=== PATIENT | female | born 1970 | race African-American/Black ===

== ENCOUNTER 2016-05-30 11:56 | Emergency (ER) | payer OTHER ==
[~2016-05-30] VITALS: Ht 170.2 cm; Wt 99.8 kg
[~2016-05-30 11:56] MED LIST: CALCIUM + D 6001 TAB PO; FLEXERIL10 MG PO; LISINOPRIL10 MG PO; MOBIC15 MG PO; MULTIVITAMIN1 TAB PO; TRAMADOL50 MG PO
--- NOTE | 2016-05-30 12:22 | ED UPPER/LOWER EXTREMITY COMPL ---
History of Present Illness General Chief Complaint: Shoulder Injury Stated Complaint: RIGHT SHOULDER AND ARM PAIN Source: patient Exam Limitations: no limitations Vital Signs & Intake/Output Vital Signs & Intake/Output Vital Signs Date Time Temp Pulse Resp B/P Pulse O2 O2 Flow FiO2 Ox Delivery Rate 05/30 1205 97.4 89 16 136/99 98 Room Air Allergies Coded Allergies: NO KNOWN ALLERGIES (05/30/16) Reconcile Medications Cyclobenzaprine HCl 10 MG TABLET 1 TAB PO QPM PRN SPASM DO NOT DRIVE WITH THIS MEDICATION Lisinopril 10 MG TAB 1 TAB PO DAILY BP (Reported) Meloxicam (Mobic) 15 MG TAB 1 TAB PO DAILY PRN PAIN Tramadol HCl 50 MG TABLET 1 TAB PO BIDP PRN PAIN DO NOT DRIVE WITH THIS MEDICATION Triage Note: 46 Y/O FEMALE C/O R ARM PAIN. STATES PAIN STARTED IN THE WRIST IN 2013. WAS EVAL'D IN ED AND GIVEN A BRACE TO WEAR, WHICH HAS BEEN HELPING. STATES NOW THE PAIN HAS TRAVELED UP ARM INTO BICEP/SHOULDER. USED HEAT LAST NIGHT WITH GOOD RELIEF. NO DEFORMITIES NOTED. PT STATES SHE THINKS IT IS HER ROTATOR CUFF. DENIES RECENT RE INJURY OR TRAUMA Triage Nurses Notes Reviewed? yes Onset: Abrupt Duration: day(s): (3) Timing: recent history Severity: moderate Pain/Injury Location: Right: Shoulder. Modifying Factors: Improves With: movement. : No Patient currently breastfeeds: No HPI: This is a 46 year old female who presents to the ER with right shoulder pain that started gradulally over the past 4 days. Pain is worse with movement, currently 8/10. She did not take any thing for pain over the counter. She used a heating pad without relief. History of previous right wrist pain many years ago which was diagnosed as tendinitis. Past History Travel History Traveled to [place] past 21 day No Medical History Any Pertinent Medical History? 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 No Review of Systems Review of Systems Constitutional: Denies: chills, fever. EENTM: Reports: no symptoms. Respiratory: Reports: no symptoms. Cardiovascular: Denies: chest pain, palpitations. Gastrointestinal/Abdominal: Denies: abdominal pain. Genitourinary: Reports: no symptoms. Musculoskeletal: Reports: joint pain, muscle pain. Skin: Reports: no symptoms. Neurological/Psychological: Reports: no symptoms. Hematologic/Endocrine: Denies: bruising, bleeding. Immunological: Reports: no symptoms. All Other Systems: Reviewed and Negative Physical Exam Physical Exam General Appearance: well developed/nourished, mild distress Head: atraumatic Eyes: Bilateral: PERRL, EOMI. Ears, Nose, Throat: normal pharynx, normal ENT inspection, hearing grossly normal Neck: normal inspection, supple Cardiovascular/Respiratory: regular rate/rhythm Peripheral Pulses: 2+ radial (R), 2+ radial (L) Back: normal inspection Shoulder Left: normal range of motion, normal inspection Elbow Left: normal range of motion, normal inspection Elbow Right: normal range of motion, normal inspection Hand Left: normal inspection, normal range of motion Hand Right: normal inspection, normal range of motion Skin: intact, normal color, warm/dry Lymphatic: no anterior cervical dwight Progress Differential Diagnosis: ROTATOR CUFF TENDINIGITS, ADHESIVE CAPSULITIS, BURSITIS, AC SEPARATION Plan of Care: Orders Procedure Date/time Status XRY-SHOULDER COMPLETE-RIGHT 05/30 1238 Active Diagnostic Imaging: Viewed by Me: Radiology Read. Discussed w/RAD: Radiology Read. Radiology Impression: no fx/dislocation, PATIENT: ALIDA BARRETT PRESENT AGE: 46 PATIENT ACCOUNT NO: [id number] : 71 LOCATION: [facility] ORDERING PHYSICIAN: CHELSEA MARIO MD SERVICE DATE: 05/30/161238 EXAM TYPE: RAD - XRY-SHOULDER COMPLETE-RIGHT EXAMINATION: XR SHOULDER, RIGHT CLINICAL INFORMATION: Right shoulder pain for one week. Worse with movement. COMPARISON: None TECHNIQUE: AP external rotation, Grashey, scapular Y, and axillary views of the right shoulder. FINDINGS: There is a high riding humerus. The bones and soft tissues are normal. No fracture. Glenohumeral and acromioclavicular alignment is anatomic with normal joint space. No abnormal soft tissue calcifications. IMPRESSION: High riding humerus, which may be positional. However, this is also seen with rotator cuff tear. Consider MRI if the patient has persistent pain. DICTATED BY: TL EMERY MD DATE/TIME DICTATED:05/30/161318 DINING ROOM MANAGER:ORQUIDEA DATE/TIME TRANSCRIBED:1318 CONFIDENTIAL, DO NOT COPY WITHOUT APPROPRIATE AUTHORIZATION. < Electronically signed in Other Vendor System> SIGNED BY: TL EMERY MD 05/30/16 1324 Departure Departure Time of Disposition: 1321 Disposition: HOME OR SELF CARE Condition: Stable Clinical Impression Primary Impression: Rotator cuff sprain Referrals: AMITA DILLON,LUIS Latif (PCP/Family) MOHSEN DILLON,SINDY Latif Additional Instructions: Take medications as directed. Prescriptions have been sent to your pharmacy in [place]. Please follow-up with your primary care doctor and with the office services specialist listed. Return to the ER for any changing or worsening symptoms. Departure Forms: Customer Survey General Discharge Information Prescriptions: Current Visit Scripts Cyclobenzaprine HCl 1 TAB PO QPM PRN SPASM #[address] WITH THIS MEDICATION Tramadol HCl 1 TAB PO BIDP PRN PAIN #[address] WITH THIS MEDICATION
[2016-05-30] MEDS ORDERED: CYCLOBENZAPRINE10 M1 PO (13:23)
[2016-05-30] MEDS ORDERED: TRAMADOL HCL50 M1 PO (13:23)
--- NOTE | 2016-05-30 13:24 | RADIOLOGY REPORT ---
EXAMINATION: XR SHOULDER, RIGHT CLINICAL INFORMATION: Right shoulder pain for one week. Worse with movement. COMPARISON: None TECHNIQUE: AP external rotation, Grashey, scapular Y, and axillary views of the right shoulder. FINDINGS: There is a high riding humerus. The bones and soft tissues are normal. No fracture. Glenohumeral and acromioclavicular alignment is anatomic with normal joint space. No abnormal soft tissue calcifications. IMPRESSION: High riding humerus, which may be positional. However, this is also seen with rotator cuff tear. Consider MRI if the patient has persistent pain.
[2016-05-30 13:33] VITALS: BP 128/70
== END 2016-05-30 13:33 ==
LOC: ERH 11:56
DX: S43.421A Sprain of right rotator cuff capsule, initial encounter (principal); X58.XXXA Exposure to other specified factors, initial encounter; Y93.9 Activity, unspecified; Y92.9 Unspecified place or not applicable
CPT/HCPCS: 73030-RT; 96372; J1885

== ENCOUNTER 2017-09-02 07:54 | Emergency (ER) | payer OTHER ==
[~2017-09-02] VITALS: Ht 170.2 cm; Wt 102.1 kg
[~2017-09-02 07:54] MED LIST changes: +CYCLOBENZAPRINE10 M1 PO; -LISINOPRIL10 MG PO; +PRINIVIL10 M1 PO; +TRAMADOL HCL50 M1 PO
--- NOTE | 2017-09-02 08:32 | ED HEADACHE COMPLAINT ---
History of Present Illness General Chief Complaint: Headache Stated Complaint: PARKS Source: patient Exam Limitations: no limitations Vital Signs & Intake/Output Vital Signs & Intake/Output Vital Signs Date Time Temp Pulse Resp B/P B/P Pulse O2 O2 Flow FiO2 Mean Ox Delivery Rate 09/02 1032 98.4 84 20 134/82 98 Room Air 09/02 0759 97.6 73 18 138/95 98 Room Air Allergies Coded Allergies: NO KNOWN ALLERGIES (05/30/16) Reconcile Medications Atorvastatin Calcium 20 MG TABLET 1 TAB PO DAILY CHOLESTEROL (Reported) Fiorinal (Fiorinal 50-325-40 MG Capsule) 50 MG-325 MG-40 MG CAPSULE 1 TAB PO BID PRN headache Lisinopril (Prinivil) 10 MG TABLET 1 TAB PO DAILY HEART (Reported) Triage Note: 47F WITH RIGHT SIDED MIGRAINE SINCE THURSDAY WITH ASSOCIATED LIGHT SENSITIVITY. DENIES N/V/D. DENIES VISION CHANGES. TOOK IBUPROFEN WITH NO RELIEF. PAIN WORST IN THE MORNING Triage Nurses Notes Reviewed? yes Onset: Gradual Duration: day(s): Timing: recent history Quality/Severity: moderate Severity Numbers: 8 Head Injury Location: parietal HPI: 47-year-old female with hx of HTN presents to ED complaining of "migraine" x 4 days. Patient states that headache has been fluctuating for the past 4 days, worse with going to work, improved with rest. Patient describes headache as right parietal, aching, 8/10 currently. Patient states she has had migraines in the past however she has never seen a specialist. The patient states this headache feels similar to her previous migraines. The patient denies recent fall or head trauma, fevers, visual changes, numbness, tingling. (Clover Zaldivar) Past History Travel History Traveled to [place] past 21 day No Medical History Any Pertinent Medical History? 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 No (Clover Zaldivar) Review of Systems Review of Systems Constitutional: Reports: no symptoms. Eyes: Reports: no symptoms. Ears, Nose, Throat, Mouth: Reports: no symptoms. Respiratory: Reports: no symptoms. Cardiovascular: Reports: no symptoms. Gastrointestinal/Abdominal: Reports: no symptoms. Genitourinary: Reports: no symptoms. Musculoskeletal: Reports: no symptoms. Skin: Reports: no symptoms. Neurological/Psychological: Reports: see HPI. Hematologic/Endocrine: Reports: no symptoms. Endocrine: Reports: no symptoms. Immunologic/Allergic: Reports: no symptoms. All Other Systems: Reviewed and Negative (Clover Zaldivar) Physical Exam Physical Exam General Appearance: well developed/nourished, no apparent distress, alert, awake Head: atraumatic, normal appearance Eyes: Bilateral: normal appearance, PERRL, EOMI. Ears, Nose, Throat: normal pharynx, hearing grossly normal Neck: normal inspection, supple, full range of motion Respiratory: normal breath sounds, no respiratory distress, lungs clear Cardiovascular: regular rate/rhythm Extremities: normal inspection, normal range of motion Psychiatric: awake, alert, oriented x 3 Cranial Nerves: normal hearing, normal speech, PERRL, CN II-XII intact Coordination/Gait: normal finger to nose, normal gait Motor/Sensory: no motor/sensory deficits Skin: intact, normal color, warm/dry Core Measures Sepsis Present: No Sepsis Focused Exam Completed? No (Clover Zaldivar) Progress Differential Diagnosis: cluster PARKS, IC mass/tumor, intracranial Hem., migraine PARKS, musculoskeletal pain, sinusitis, tension PARKS Plan of Care: Patient reports improvement following Fioricet however is reporting persistent 6 /10 headache currently. I offered the patient IV medication however she does not she can tolerate an IV being placed. Patient prefers IM medications. Patient medicated with IM Toradol and Reglan. Patient reports headache has improved to 4/10 following IM pain medications. Given patient's persistent headache I offered patient's CT head imaging to rule out bleeding/mass however patient declines, she prefers to follow-up with a neurologist as an outpatient. Patient prefers home at this time, she declines further pain control here in the emergency department. I prescribed the patient Fioricet and gave her a neurology referral. The patient was given strict return precautions which she understands. Patient is ready to go home at this time, no acute distress, nontoxic appearing, ambulatory with steady gait, no focal neurologic deficit. The patient agrees with the plan of care. (Clover Zaldivar) Departure Departure Disposition: HOME OR SELF CARE Condition: Stable Clinical Impression Primary Impression: Headache Qualifiers: Headache type: unspecified Headache chronicity pattern: acute headache Intractability: not intractable Qualified Code: R51 - Headache Referrals: Emeli DILLON,Onesimo Latif (PCP/Family) Additional Instructions: Follow-up with the neurologist you're referred to today. The medications you received today include torodol, reglan, and fioricet. Return if you have any worsening symptoms or other concerns. Please note that there might be incidental findings in your evaluation that are unrelated to the current emergency department visit. Please notify your primary care doctor about this emergency department visit in order to obtain and review all of the testing performed so that these incidental findings can be monitored as needed. If you had an x-ray performed, please understand that some fractures may not be seen on the initial set of x-rays. If your symptoms persist you might need a repeat set of x-rays to check for such a fracture. If you had a laceration evaluated, please understand that foreign bodies such as glass or wood may not be visible to the naked eye or on plain x-rays. If the wound becomes red, swollen, increasingly more painful or if there is any drainage from the wound, please have it reevaluated by a physician for the possibility of a retained foreign body. If you're unable to follow up as outlined in the discharge instructions please return to the emergency department. Thank you for choosing the [facility] Emergency Department for your care. It was a pleasure to serve you today. Departure Forms: Customer Survey General Discharge Information Prescriptions: Current Visit Scripts Fiorinal (Fiorinal 50-325-40 MG Capsule) 1 TAB PO BID PRN headache #10 TAB (Clover Zaldivar) PA/METAL TEMPLATE MAKER Co-Sign Statement Statement: ED Attending supervision documentation- [] I saw and evaluated the patient. I have also reviewed all the pertinent lab results and diagnostic results. I agree with the findings and the plan of care as documented in the PA's/METAL TEMPLATE MAKER's documentation. [x] I have reviewed the ED Record and agree with the PA's/METAL TEMPLATE MAKER's documentation. [] Additions or exceptions (if any) to the PAs/METAL TEMPLATE MAKER's note and plan are summarized below: [] (Manjeet Mcclelland DO)
[2017-09-02] MEDS ORDERED: ATORVASTATIN CA20 M1 PO (09:34)
[2017-09-02] MEDS ORDERED: FIORINAL 50-321 EACH PO (10:23)
[2017-09-02 10:32] VITALS: BP 134/82
== END 2017-09-02 10:34 ==
LOC: ERH 07:54
DX: R51 Headache (principal)
CPT/HCPCS: 96372; J1885; J2765

== ENCOUNTER 2017-10-04 09:03 | Emergency (ER) | payer OTHER ==
[~2017-10-04] VITALS: Ht 170.2 cm; Wt 102.1 kg
[~2017-10-04 09:03] MED LIST changes: +ATORVASTATIN CA20 M1 PO; +FIORINAL 50-321 EACH PO
--- NOTE | 2017-10-04 09:12 | ED GI/GU/ABDOMINAL COMPLAINT ---
History of Present Illness General Chief Complaint: Abdominal Pain/Flank Pain Stated Complaint: ABD PAIN Source: patient Exam Limitations: no limitations Vital Signs & Intake/Output Vital Signs & Intake/Output Vital Signs Date Time Temp Pulse Resp B/P B/P Pulse O2 O2 Flow FiO2 Mean Ox Delivery Rate 10/04 1350 72 18 128/72 99 Room Air 10/04 1208 68 16 132/83 99 Room Air 10/04 0908 81 18 125/88 99 Room Air Allergies Coded Allergies: NO KNOWN ALLERGIES (05/30/16) Reconcile Medications Atorvastatin Calcium 20 MG TABLET 1 TAB PO DAILY CHOLESTEROL (Reported) Dexlansoprazole (Dexilant) 60 MG ARABELLA.BP 1 CAP PO DAILY gastritis Lisinopril (Prinivil) 10 MG TABLET 1 TAB PO DAILY HEART (Reported) Multiple Vitamin (Multivitamins) 1 EACH TABLET 1 TAB PO DAILY SUPPLEMENT ( Reported) Triage Note: 47F W INTERMITTENT ABD PAIN X2 WEEKS AFTER BEING PLACED ON MOTRIN 800'S FOR DENTAL PAIN. VOMITED X2 LAST NIGHT AND POOR PO INTAKE BECAUSE OF ABD PAIN. DENIES BLACK OR BLOODY STOOLS OR ACID REFLUX/GERD SYMPTOMS. NO CURRENT PAIN, BUT WHEN IT HURTS IT IS 10/10 Triage Nurses Notes Reviewed? yes ? n Is pt currently ? No HPI: 47-year-old female with hypertension and chronic kidney disease, with recent dental procedure presents the emergency department reporting right upper quadrant abdominal pain that began about 2 weeks ago. She states that she had been taken ibuprofen 800 mg 4-5 times daily for about 5 days for tooth pain at the time that was prescribed by her dentist. She states that her abdominal pain became so bad that last night she had vomited. She denies any vomiting this morning however she has not had anything to eat. She reports the pain is a dull ache at the present time but states that it does get worse and becomes a 10 out of 10. She denies any worsening with eating. She denies any changes in bowel movements. She was also prescribed Percocet and amoxicillin for her dental procedure. She takes amoxicillin daily and Percocet only as needed. (Elizabeth Lilly) Past History Travel History Traveled to [place] past 21 day No Medical History Any Pertinent Medical History? 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 No (Elizabeth Lilly) Review of Systems Review of Systems Constitutional: Reports: see HPI. EENTM: Reports: no symptoms. Respiratory: Reports: no symptoms. Cardiovascular: Reports: no symptoms. GI: Reports: see HPI. Genitourinary: Reports: no symptoms. Musculoskeletal: Reports: no symptoms. Skin: Reports: no symptoms. Neurological/Psychological: Reports: no symptoms. Hematologic/Endocrine: Reports: no symptoms. Immunologic/Allergic: Reports: no symptoms. All Other Systems: Reviewed and Negative (Elizabeth Lilly) Physical Exam Physical Exam General Appearance: well developed/nourished, no apparent distress, alert, awake , comfortable Head: atraumatic, normal appearance Eyes: Bilateral: normal appearance. Ears, Nose, Throat, Mouth: hearing grossly normal Neck: normal inspection, full range of motion Respiratory: normal breath sounds, chest non-tender, no respiratory distress Cardiovascular: regular rate/rhythm Gastrointestinal: normal bowel sounds, soft, non-tender Extremities: normal range of motion Neurologic/Psych: no motor/sensory deficits, awake, alert, oriented x 3, normal mood/affect Skin: intact, normal color, warm/dry Comments: Patient denies any abdominal tenderness on exam with palpation however she does report it is a dull ache. Negative Blunt sign. No umbilical tenderness or tenderness at McBurney's point. Core Measures ACS in differential dx? No Sepsis Present: No Sepsis Focused Exam Completed? No (Elizabeth Lilly) Progress Differential Diagnosis: appendicitis, cholecystitis, gastritis, kidney stone, PUD/GERD Plan of Care: Orders Procedure Date/time Status Add-on Test (ER Only) 10/04 1051 Active HUMAN BETA HCG SCREEN 10/04 0958 Complete URINE 10/04 950 Complete URINALYSIS 10/04 950 Complete LIPASE 10/04 950 Complete LACTIC ACID 10/04 950 Complete COMPREHENSIVE METABOLIC PANEL 10/04 950 Complete CBC WITHOUT DIFFERENTIAL 10/04 950 Complete AMYLASE 10/04 950 Complete Laboratory Tests 10/04/17 1303: Urine Color YEL, Urine Clarity CLEAR, Urine pH 6.0, Ur Specific [place] 1.025, Urine Protein NEG, Urine Ketones NEG, Urine Nitrite NEG, Urine Bilirubin NEG, Urine Urobilinogen 0.2, Ur Leukocyte Esterase NEG, Ur Microscopic EXAM NOT REQUIRED, Urine Hemoglobin NEG, Urine Glucose NEG, Urine Test NEGATIVE 10/04/17 1251: Lactic Acid Cancelled 10/04/17 0958: Anion Gap 12, Estimated GFR 25 L, BUN/Creatinine Ratio 8.1, Glucose 93, Lactic Acid 0.7, Calcium 9.7, Total Bilirubin 0.6, AST 25, ALT 30, Alkaline Phosphatase 74, Total Protein 7.7, Albumin 4.0, Globulin 3.7, Albumin/Globulin Ratio 1.1, Amylase 79, Lipase 139, Total Beta HCG NEGATIVE, CBC w Diff NO MAN DIFF REQ, RBC 4.21, MCV 89.0, MCH 29.4, MCHC 33.0, RDW 13.8, MPV 8.0, Gran % 47.3, Lymphocytes % 37.4, Monocytes % 9.4 H, Eosinophils % 5.0, Basophils % 0.9, Absolute Granulocytes 1.4, Absolute Lymphocytes 1.1 L, Absolute Monocytes 0.3, Absolute Eosinophils 0.1, Absolute Basophils 0 47-year-old female with 2 weeks of abdominal pain after taking ibuprofen 800 mg every 4-6 hours for 5 days in a row. -NS administered and GI cocktail given -Labs unremarkable other than elevated creat which pt is diagnosed with chronic kidney disease -Abd CT without contrast d/t history of chronic kidney disease (last creat on file 2.1) -Unremarkable imaging -Pt discharged with dexilant, advised no ibuprofen use, follow up with GI on Thursday. Take tylenol in substitute of ibuprofen for tooth pain. Return to the ED with new or worsening symptoms. Patient stable at time of discharge. Diagnostic Imaging: Viewed by Me: CT Scan. Discussed w/RAD: CT Scan. Radiology Impression: PATIENT: ALIDA BARRETT PRESENT AGE: 47 PATIENT ACCOUNT NO: [id number] : 71 LOCATION: [facility] ORDERING PHYSICIAN: Elizabeth MCDONALD SERVICE DATE: 10/04/17-999 EXAM TYPE: CAT - CT ABD & PELVIS W/O IV CONTRAS EXAMINATION: CT ABDOMEN AND PELVIS WITHOUT CONTRAST CLINICAL INFORMATION: 47-year-old female with history of chronic renal disease, peptic ulcer disease, cholelithiasis and nephrolithiasis. Patient presents with abdominal pain. COMPARISON: 03/04/2010. TECHNIQUE: Multidetector volumetric imaging was performed from the superior aspect of the liver through the pubic symphysis. Sagittal and coronal reformatted images were obtained on the technologist's workstation. DLP: 762 mGy-cm FINDINGS: LUNG BASES: Unremarkable. LIVER, GALLBLADDER, AND BILIARY TREE: Liver has normal size, contour and attenuation. Gallbladder is unremarkable. No intrahepatic or extrahepatic bile duct dilatation. PANCREAS: Unremarkable. SPLEEN: Unremarkable. ADRENAL GLANDS: Unremarkable. KIDNEYS AND URETERS: Kidneys have lobulated contour and exhibits chronic, nonuniform cortical thinning/scarring, possibly secondary to reflux nephropathy and/or pyelonephritis during childhood. The configuration of the kidneys is unchanged compared to 03/04/2010. No nephrolithiasis, hydronephrosis or perinephric edema. The ureters are normal in caliber. BLADDER: Unremarkable. GASTROINTESTINAL TRACT: Loops of bowel are normal in size. There are no inflammatory changes along the gastrointestinal tract. No focal bowel wall thickening or pericolonic fat stranding. No bowel obstruction, pneumoperitoneum or ascites. ABDOMINAL WALL: There is an old, small , fat-containing umbilical hernia. No acute findings in the abdominal wall. LYMPH NODES: Normal. VASCULAR: Unremarkable. PELVIC VISCERA: Large, lobulated, leiomyomatous uterus measures approximately 10.5 cm long, 10 cm AP and 8.3 cm transverse. A calcified leiomyoma within the right posterior uterine body measures up to 1.7 cm. No adnexal mass or pelvic free fluid. 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 The lumbar vertebra have normal height and alignment. No suspicious bone lesions. IMPRESSION: 1. No acute findings in the abdomen or pelvis. 2. Chronic, nonuniform thinning/scarring of both kidneys which have lobulated contour. The configuration of the kidneys is unchanged compared to 03/04/2010. The findings could be secondary to reflux nephropathy/pyelonephritis during childhood. No acute abnormalities along the urinary tracts. 3. Leiomyomatous uterus. DICTATED BY: Steve Sands MD DATE/TIME DICTATED:10/04/171312 PROFESSOR OF ARCHITECTURE: ORQUIDEA DATE/TIME TRANSCRIBED:07/08/18 / 1313 CONFIDENTIAL, DO NOT COPY WITHOUT APPROPRIATE AUTHORIZATION. <Electronically signed in Other Vendor System> SIGNED BY: Steve Sands MD 10/04/17 1325 Initial ED EKG: none (Elizabeth Lilly) Departure Departure Disposition: HOME OR SELF CARE Condition: Stable Clinical Impression Primary Impression: Gastritis Qualifiers: Gastritis type: other gastritis Chronicity: acute Gastritis bleeding: without bleeding Qualified Code: K29.00 - Acute gastritis without bleeding Referrals: Emeli DILLON,Onesimo Latif (PCP/Family) Nando DILLON,Jose Miguel Sainz Additional Instructions: Take Dexilant daily for abdominal pain. Discontinue use of ibuprofen. Take Tylenol as needed for tooth pain. Follow-up with [facility] on Thursday. Return to the emergency department with any new or worsening symptoms. Departure Forms: Customer Survey General Discharge Information Prescriptions: Current Visit Scripts Dexlansoprazole (Dexilant) 1 CAP PO DAILY #15 CAP (Elizabeth Lilly) PA/DORR OPERATOR Co-Sign Statement Statement: ED Attending supervision documentation- I saw and evaluated the patient. I have also reviewed all the pertinent lab results and diagnostic results. I agree with the findings and the plan of care as documented in the PA's/DORR OPERATOR's documentation. x I have reviewed the ED Record and agree with the PA's/DORR OPERATOR's documentation. [] Additions or exceptions (if any) to the PAs/DORR OPERATOR's note and plan are summarized below: [] (Marielle DILLON,Rusty)
[2017-10-04 10:32] LABS: ABSOLUTE BASOPHIL COUNT 0 /CUMM (0.0-0.2); ABSOLUTE EOSINOPHIL COUNT 0.1 /CUMM (0.0-0.7); ABSOLUTE GRANULOCYTE CT 1.4 /CUMM (1.4-6.5); ABSOLUTE LYMPH COUNT 1.1 /CUMM (1.2-3.4); ABSOLUTE MONOCYTE COUNT 0.3 /CUMM (0.10-0.60); BASOPHIL % 0.9 % (0.0-2.0); GRANULOCYTE % 47.3 % (42.2-75.2); HEMATOCRIT 37.5 % (37-47); MEAN CORPUSCULAR HGB 29.4 PG (27.0-31.0); PLATELET COUNT 264 /CUMM (130-400); RBC DISTRIBUTION WIDTH 13.8 % (11.5-14.5); RED BLOOD CELL CT 4.21 /CUMM (4.20-5.40)
[2017-10-04] MEDS ORDERED: MULTIVITAMINS1 EAC9 PO (12:30)
--- NOTE | 2017-10-04 13:25 | CT SCAN REPORT ---
EXAMINATION: CT ABDOMEN AND PELVIS WITHOUT CONTRAST CLINICAL INFORMATION: 47-year-old female with history of chronic renal disease, peptic ulcer disease, cholelithiasis and nephrolithiasis. Patient presents with abdominal pain. COMPARISON: 03/04/2010. TECHNIQUE: Multidetector volumetric imaging was performed from the superior aspect of the liver through the pubic symphysis. Sagittal and coronal reformatted images were obtained on the technologist's workstation. DLP: 762 mGy-cm FINDINGS: LUNG BASES: Unremarkable. LIVER, GALLBLADDER, AND BILIARY TREE: Liver has normal size, contour and attenuation. Gallbladder is unremarkable. No intrahepatic or extrahepatic bile duct dilatation. PANCREAS: Unremarkable. SPLEEN: Unremarkable. ADRENAL GLANDS: Unremarkable. KIDNEYS AND URETERS: Kidneys have lobulated contour and exhibits chronic, nonuniform cortical thinning/scarring, possibly secondary to reflux nephropathy and/or pyelonephritis during childhood. The configuration of the kidneys is unchanged compared to 03/04/2010. No nephrolithiasis, hydronephrosis or perinephric edema. The ureters are normal in caliber. BLADDER: Unremarkable. GASTROINTESTINAL TRACT: Loops of bowel are normal in size. There are no inflammatory changes along the gastrointestinal tract. No focal bowel wall thickening or pericolonic fat stranding. No bowel obstruction, pneumoperitoneum or ascites. ABDOMINAL WALL: There is an old, small, fat-containing umbilical hernia. No acute findings in the abdominal wall. LYMPH NODES: Normal. VASCULAR: Unremarkable. PELVIC VISCERA: Large, lobulated, leiomyomatous uterus measures approximately 10.5 cm long, 10 cm AP and 8.3 cm transverse. A calcified leiomyoma within the right posterior uterine body measures up to 1.7 cm. No adnexal mass or pelvic free fluid. OSSEOUS STRUCTURES: Within the lumbar spine, there is severe left-sided facet osteoarthritis of L5-S1. The lumbar vertebra have normal height and alignment. No suspicious bone lesions. IMPRESSION: 1. No acute findings in the abdomen or pelvis. 2. Chronic, nonuniform thinning/scarring of both kidneys which have lobulated contour. The configuration of the kidneys is unchanged compared to 03/04/2010. The findings could be secondary to reflux nephropathy/pyelonephritis during childhood. No acute abnormalities along the urinary tracts. 3. Leiomyomatous uterus.
[2017-10-04] MEDS ORDERED: DEXILANT60 M1 PO (13:36)
[2017-10-04 13:50] VITALS: BP 128/72
== END 2017-10-04 13:52 ==
LOC: ERH 09:03
PROVIDERS: Physician Assistant
DX: K29.70 Gastritis, unspecified, without bleeding (principal); R10.11 Right upper quadrant pain
CPT/HCPCS: 74176; 81003; 81025; 96360; 96361